=== PATIENT | female | born 1965 | race Caucasian/White ===

== ENCOUNTER → 2018-08-27 | Day surgery (SDC) | payer BC ==
[~2018-08-27] MED LIST: Lidocaine 1% 20 ML MDV ONE
--- NOTE | 2018-08-27 11:20 | OR ---
DATE OF OPERATION: 08/27/2018 PREOPERATIVE DIAGNOSIS: VENOUS INSUFFICIENCY WITH PAINFUL VARICOSE VEINS. POSTOPERATIVE DIAGNOSIS: VENOUS INSUFFICIENCY WITH PAINFUL VARICOSE VEINS. SURGEON: Song Mayorga MD PROCEDURE: DANIEL, LEFT GSV. ANESTHESIA: Local with tumescent. COMPLICATIONS: None. SPECIMEN: None. FINDINGS: Successful DANIEL, left GSV. INDICATIONS: The patient has documented saphenofemoral insufficiency. She has symptomatic varicose veins and venous insufficiency. We elected to proceed. The patient elected to proceed with endovenous ablation. DESCRIPTION OF PROCEDURE: The patient was brought to the operating room suite and the insufficient saphenous vein was mapped via ultrasound and diagrammed along the overlying skin along with the depth and diameter the vein to be treated and the access site below the knee. The entire limb was prepped and draped in sterile fashion. The patient was placed in reverse Trendelenburg position. Local anesthesia in the form of 1% lidocaine was instilled at the access site. The vein was accessed using ultrasound guidance and the Seldinger technique, placed in a guidewire then through the needle into the vein. The needle was removed. A small incision was made with #11 blade scalpel, and the guidewire was exchanged for a 6-[place] sheath, secured in place by skin tension. After guidewire was removed, the sheath was flushed. The radiofrequency probe was then placed into the vein through the sheath and positioned approximately 2 cm distal to the saphenofemoral junction under ultrasound guidance keeping the catheter tip just inferior to the superficial epigastric vein to preserve flow there. After probe position verified via ultrasound, tumescent anesthesia was infiltrated under ultrasound guidance into the perivenous compartment along the length of the vein from the entry site to the saphenofemoral junction and a nice halo effect was achieved. The patient was placed back in Trendelenburg position to exsanguinate the superficial system. After probe position again confirmed with ultrasound and with direct external compression along the length of the heating element, radiofrequency energy was applied. The vein was segmentally ablated by heating a 7 cm segment indexing the catheter forward 6.5 cm until treatment length complete. Device temperature was maintained at 120 degrees Celsius with an initial power level of 40 christianson dropping to below 20 for each treatment. Total treatment time was 3 minutes and 40 seconds with 11 radiofrequency treatment cycles. A total of 500 mL of tumescent was used. Repeat ultrasound confirmed successful treatment. The catheter and the sheath were withdrawn without complication. Access site was closed with a butterfly bandage. Compression wrap was then placed from the level of the foot to the groin. There were no complications and the patient was stable in the recovery room. ANI/DAX /[id number]
== END ==
LOC: CC.SDS 08:12
PROVIDERS: ATTEND Family Medicine
DX: I83.812 Varicose veins of left lower extremity with pain (principal); I87.2 Venous insufficiency (chronic) (peripheral)

== ENCOUNTER 2020-01-03 18:36 | Emergency (ER) | payer BC ==
[2020-01-03] MEDS ORDERED: Cephalexin 500 MG Cap PO ONE (18:37)
[2020-01-03] MEDS ORDERED: Lidocaine 1% 20 ML MDV INJECT ONE (18:42)
[2020-01-03] MEDS ORDERED: Bacitracin/Neomycin/Polymyxin B Oint 28.4 GM Tube TOP ONE (18:43)
[2020-01-03] MEDS ORDERED: Bacitracin/Neomycin/Polymyxin B Oint 0.9 GM U/D Packet TOP ONE (18:49)
[2020-01-03] MEDS ORDERED: Take Home: Cephalexin 500 MG Cap, 4 Cap Pack PO ONE (18:55)
--- NOTE | 2020-01-03 18:59 | EDM.PDOC ---
ED HPI GENERAL MEDICAL PROBLEM - General Chief Complaint: Laceration Stated Complaint: Left forearm laceration Time Seen by Provider: 01/03/20 18:39 Source of Information: Reports: Patient History Limitations: Reports: No Limitations - History of Present Illness INITIAL COMMENTS - FREE TEXT/NARRATIVE: The patient presents to the emergency department where she was cutting up some chicken and the knife slipped and sustained a 1 cm laceration to the left mid forearm. Bleeding is controlled. The patient's tetanus shot is up-to-date there is no numbness or tingling no other symptoms this happened about 1 hour prior to arrival. Onset: Today Duration: Hour(s): (1 hour prior to arrival) Location: Reports: Upper Extremity, Left Severity: Mild Improves with: Reports: None Worsens with: Reports: None Context: Reports: Trauma (As above) Associated Symptoms: Reports: No Other Symptoms Treatments PROJECT ACCOUNT MANAGER: Reports: Other (see below) (none) Left Lower Arm Pain Score (Numeric/FACES): 4 - Related Data Allergies Allergy/AdvReac Type Severity Reaction Status Date / Time No Known Allergies Allergy Verified 01/03/20 18:36 Home Meds: Home Meds cephALEXin [Keflex] 500 mg PO TID 7 Days #21 capsule 01/03/20 [Rx] Social & Family History - Family History Family Medical History: Noncontributory - Tobacco Use Smoking Status *Q: Never Smoker - Recreational Drug Use Recreational Drug Use: No ED ROS GENERAL - Review of Systems Review Of Systems: See Below Constitutional: Reports: No Symptoms Respiratory: Reports: No Symptoms Cardiovascular: Reports: No Symptoms GI/Abdominal: Reports: No Symptoms. Denies: Nausea, Vomiting Musculoskeletal: Reports: No Symptoms. Denies: Neck Pain, Back Pain Skin: Reports: Wound (1 cm laceration to the mid left forearm) Neurological: Reports: No Symptoms. Denies: Numbness, Tingling Psychiatric: Reports: No Symptoms ED EXAM, SKIN/RASH Exam: See Below Exam Limited By: No Limitations General Appearance: Alert, WD/WN, No Apparent Distress Respiratory/Chest: No Respiratory Distress, Lungs Clear, Normal Breath Sounds Cardiovascular: Normal Peripheral Pulses, Regular Rate, Rhythm, No Murmur Peripheral Pulses: 2+: Radial (L), Radial (R) Extremities: Normal Range of Motion, Non-Tender, Normal Capillary Refill, Other (Laceration as described above) Neurological: Alert, Oriented, Normal Cognition, Normal Gait, No Motor/Sensory Deficits Psychiatric: Normal Affect, Normal Mood Skin: Warm, Dry, Normal Color, Wound/Incision (As described above). No: Intact Location, Skin: Upper Extremity, Left (As described above) ED SKIN PROCEDURES - Laceration/Wound Repair Left Middle Arm Appearance: Linear Distal NVT: Neuro & Vascular Intact Anesthetic Type: Local Local Anesthesia - Lidocaine (Xylocaine): 1% Plain Local Anesthetic Volume: 4cc Skin Prep: Saline (Cleaning solution) Exploration/Debridement/Repair: Wound Explored, In a Bloodless Field, Explored to Base Closed with: Sutures Lac/Wound length In cm: 1 Suture Size: 5-0 # of Sutures: 3 Suture Type: Nylon Sterile Dressing Applied: Provider Tetanus Status Addressed: Yes (Is up-to-date) Complications: No Course - Vital Signs Text/Narrative:: The patient was evaluated in the emergency department the patient has a laceration to the left midforearm, the patient was advised need to close the wound after the risk and benefits was explained she agrees to proceed. Also advised the patient despite the best cleaning this wound can still become infected advised patient she may be placed on antibiotics for a few days. The patient agrees. The wound was sutured see the laceration repair procedure note for details. The patient tolerated the procedure well she was given Keflex 1 g now and 1 g at bedtime and then she will have Keflex 500 mg 3 times daily for 7 days should be advised to follow-up in 7 to 10 days for suture removal and reassessment and she is to return emergency department sooner if worse or any problems Last Recorded V/S: Last Vital Signs Temp 36.3 C 01/03/20 18:37 Pulse 89 01/03/20 18:37 Resp 16 01/03/20 18:37 BP 129/67 01/03/20 18:37 Pulse Ox 99 01/03/20 18:37 - Orders/Labs/Meds Meds: Medications Discontinued Medications Generic Name Dose Route Start Last Admin Trade Name Freq PRN Reason Stop Dose Admin Cephalexin 1 packet 01/03/20 18:55 01/03/20 18:58 Take Home: Cephalexin 500 Mg, 4 Cap Pack PO 01/03/20 18:56 1 packet ONETIME ONE Administration Lidocaine HCl 5 ml 01/03/20 18:42 01/03/20 18:49 Xylocaine 1% INJECT 01/03/20 18:43 5 ml ONETIME ONE Administration Neomycin/Polymyxin/Bacitracin 1 gm 01/03/20 18:43 01/03/20 18:52 Triple Antibiotic Oint TOP 01/03/20 18:44 Not Given ONETIME ONE Neomycin/Polymyxin/Bacitracin 1 each 01/03/20 18:49 01/03/20 18:54 Triple Antibiotic Oint TOP 01/03/20 18:50 1 each ONETIME ONE Administration Departure - Departure Time of Disposition: 18:56 Disposition: Home, Self-Care 01 Condition: Good Clinical Impression: Laceration of left forearm - Discharge Information *PRESCRIPTION DRUG MONITORING PROGRAM REVIEWED*: Not Applicable *COPY OF PRESCRIPTION DRUG MONITORING REPORT IN PATIENT BETH: Not Applicable Prescriptions: cephALEXin [Keflex] 500 mg PO TID 7 Days #21 capsule Instructions: Laceration Care, Adult, Sutures, Eliel, or Adhesive Wound Closure, [id number] Referrals: Snog Mayorga MD [Primary Care Provider] - Forms: ED Department Discharge Additional Instructions: Keep the wound clean and dry Apply thin coating Neosporin 3 times a day Keflex 500 mg 3 times a day for 7 days Follow-up for reevaluation and possible suture removal in 7 to 10 days Return to the emergency department sooner if worse or any problems Sepsis Event Note (ED) - Evaluation Sepsis Screening Result: No Definite Risk - Focused Exam Vital Signs: Vital Signs Temp Pulse Resp BP Pulse Ox 01/03/20 18:37 36.3 C 89 16 129/67 99 - Problem List & Annotations (1) Laceration of left forearm SNOMED Code(s): 06845359724267814 Code(s): S51.812A - LACERATION WITHOUT FOREIGN BODY OF LEFT FOREARM, INIT ENCNTR Status: Acute Priority: Medium Current Visit: No Qualifiers: Encounter type: initial encounter Qualified Code(s): S51.812A - Laceration without foreign body of left forearm, initial encounter - Problem List Review Problem List Initiated/Reviewed/Updated: Yes - Assessment/Plan Plan: The patient's past medical history, past surgical history, social history and past family medical history is reviewed see the nursing notes for details
== END 2020-01-03 19:03 | disposition home or self-care (01) ==
LOC: CC.ED 18:36
DX: S51.812A Laceration without foreign body of left forearm, initial encounter (principal); W26.0XXA Contact with knife, initial encounter
CPT/HCPCS: 12001; 99282; A9270; J2001

== ENCOUNTER → 2020-02-12 | Day surgery (SDC) | payer BC ==
[~2020-02-12] MED LIST changes: +Ketamine 200 MG/20 ML MDV IV ONE; +Lactated Ringers 1,000 ML IV SCH; -Lidocaine 1% 20 ML MDV ONE; +Phenylephrine 1% 10 MG/ML SDV IV ONE; +Propofol 200 MG/20 ML SDV IV ONE; +fentaNYL 100 MCG/2 ML SDV IV ONE
--- NOTE | 2020-02-15 11:13 | OR ---
DATE OF OPERATION: 02/12/2020 PREOPERATIVE DIAGNOSIS: SCREENING COLONOSCOPY. POSTOPERATIVE DIAGNOSIS: SCREENING COLONOSCOPY. SURGEON: Song Mayorga MD PROCEDURE: FULL-LENGTH COLONOSCOPY WITH FORCEPS POLYP REMOVAL X2. ANESTHESIA: MAC. COMPLICATIONS: None. SPECIMEN: Two small 2 mm sessile polyps. RECOMMENDATIONS: Followup colonoscopy in 5 years. INDICATIONS: The patient was seen for colonoscopy for screening purposes due to her age. DESCRIPTION OF PROCEDURE: The patient was prepped and draped, placed in the left lateral decubitus position. A lubricated Olympus colonoscope was inserted and easily advanced to the cecum. Direct visualization of the ileocecal valve and appendiceal orifice was accomplished. The bowel prep was adequate. Upon withdrawal of the scope, the cecum and ascending colon were benign. The patient had a very small 2 mm sessile polyp, which was flat at the hepatic flexure, removed with a forceps biopsy. The rest of the transverse and descending areas appeared benign. Throughout the length of the colon, I could find no signs of any diverticula, vascular abnormalities, or colitis. Around 40 cm, the patient had a second small flat sessile polyp also about 2 mm, removed with a forceps. The rectal vault appeared benign. Retroflexion of the scope in the rectum showed no perianal lesions. Air was suctioned, scope removed without complication. ANI/DAX /[id number]
== END ==
LOC: CC.SDS 06:26
PROVIDERS: ATTEND Family Medicine
DX: Z12.11 Encounter for screening for malignant neoplasm of colon (principal); K63.5 Polyp of colon
CPT/HCPCS: J2370; J2704; J3010; J7120

== ENCOUNTER 2025-02-05 10:49 | Day surgery (SDC) | payer BC ==
[2025-02-05] MEDS: Lactated Ringers 1,000 ML IV SCH (11:16)
[2025-02-05] MEDS ORDERED: Midazolam 1 MG/ML 2 ML SDV ONE (11:35)
[2025-02-05] MEDS ORDERED: Flumazenil 0.1 MG/ML 5 ML MDV ONE (11:35)
[2025-02-05] MEDS ORDERED: Propofol 200 MG/20 ML SDV ONE (11:35)
[2025-02-05] MEDS ORDERED: ePHEDrine 50 MG/ML SDV ONE (11:35)
[2025-02-05] MEDS ORDERED: fentaNYL 50 MCG/ML SDV ONE (11:35)
[2025-02-05] MEDS ORDERED: Ketamine 200 MG/20 ML MDV ONE (11:35)
== END 2025-02-05 12:55 | disposition home or self-care (01) ==
LOC: CC.SDS 10:49
PROVIDERS: ATTEND Family Medicine
DX: Z12.11 Encounter for screening for malignant neoplasm of colon (principal); Z86.0100 Personal history of colon polyps, unspecified; Z79.899 Other long term (current) drug therapy
CPT/HCPCS: 00811; J2250; J2704; J3010; J3490; J7120